=== PATIENT | male | born 1965 | race African-American/Black ===

== ENCOUNTER 2019-08-11 10:09 | Observation (INO) ==
[2019-08-11] MEDS ORDERED: ASPIRIN 325 MG TABLET PO STA (11:22)
[2019-08-11 11:27] LABS: Basophils % 0.8 % (0.0-0.8); Eosinophils # 0.1 10*3/uL (0.0-0.87); Eosinophils % 1.2 % (0.00-10.9); Hematocrit 47.3 VOL% (42.0-52.0); Hemoglobin 15.3 GM/DL (14.0-18.0); Immature Granulocytes % 0.6 %; Immature Granulocytes Absolute 0.03 #; Lymphocytes # 2.2 10*3/uL (1.4-4.0); Mean Corpuscular HGB Conc 32.3 GM/DL (32-36); Mean Corpuscular Volume 90.3 FL (87-102); Monocytes % 12.5 % (1.7-12.7); Neutrophils % 42.9 % (38.7-73.9); Platelet Count 230 T/CUMM (130-400); Red Blood Count 5.24 MC/CUMM (3.8-5.5); Red Cell Distribution Width 13.9 % (9.3-17.3); White Blood Count 5.2 T/CUMM (4-12)
[2019-08-11 11:35] LABS: INR 1.2; PT Patient Result 12.3 SECS (9.8-11.9); Partial Thromboplastin Time 29.6 SECS (23.9-33.8)
[2019-08-11] MEDS ORDERED: GLUCAGON 1 MG VIAL IM PRN (13:59)
[2019-08-11] MEDS ORDERED: MORPHINE 4 MG/1 ML VIAL IV PRN (13:59)
[2019-08-11] MEDS ORDERED: ONDANSETRON 4 MG/2 ML VIAL IV PRN (13:59)
[2019-08-11] MEDS ORDERED: DEXTROSE 10% 250 ML BAG IV PRN (13:59)
[2019-08-11] MEDS ORDERED: NIFEdipine 10 MG CAPSULE PO PRN ×2 (15:12→15:32)
[2019-08-11 16:43] LABS: Risk Ratio 3.06; VLDL CHOLESTEROL 26.8 MG/DL
[2019-08-11] MEDS ORDERED: NITROGLYCERIN SL 0.4 MG TABLET SL PRN (16:53)
[2019-08-11] MEDS ORDERED: ENOXAPARIN 100 MG/ML SYRINGE SUBCUT SCH (18:00)
[2019-08-11 18:45] LABS: Apearance,Urine CLEAR (Clear); Bacteria,Urine Occasional /HPF (Few); Bilirubin,Urine Negative (Negative); Blood, Urine Negative (Negative); Glucose,Urine (UA) Negative (Negative); Ketones,Urine Negative (Negative); Mucus,Urine Few /LPF (Occasional); Nitrite,Urine Negative (Negative); Protein,Urine Negative; RBC,Urine 1 /HPF (0-4); Urine Color Yellow (Yellow); Urine Specific Gravity 1.021 (1.001-1.035); Urine Urobilinogen < 2.0 EU/DL (0.2-1.0); WBC,Urine 10 /HPF (0-6)
[2019-08-11 20:34] LABS: Calcium 9.3 MG/DL (8.5-10.1); Osmolality,Calculated 275.8 MOS/KG (273-304)
[2019-08-11] MEDS: METOPROLOL TARTRATE 25 MG TABLET PO SCH (20:44)
[2019-08-11] MEDS: ENOXAPARIN 100 MG/ML SYRINGE SUBCUT SCH (20:44)
[2019-08-11] MEDS ORDERED: ENOXAPARIN 40 MG/0.4 ML SYRINGE SUBCUT SCH (21:00)
[2019-08-11] MEDS ORDERED: POTASSIUM CHLORIDE 20 MEQ TABLET PO ONE (21:05)
[2019-08-11 21:21] LABS: Barbiturates Screen,Urine Negative (Negative); Benzodiazepines Screen,Urine Negative (Negative); Cannabinoid Screen,Urine Negative (Negative); Opiate Screen,Urine Negative (Negative); Phencyclidine Screen,Urine Negative (Negative)
[2019-08-12 06:09] LABS: Basophils % 0.8 % (0.0-0.8); Eosinophils # 0.1 10*3/uL (0.0-0.87); Eosinophils % 1.5 % (0.00-10.9); Hematocrit 45.7 VOL% (42.0-52.0); Hemoglobin 14.8 GM/DL (14.0-18.0); Immature Granulocytes % 0.2 %; Immature Granulocytes Absolute 0.01 #; Lymphocytes # 2.4 10*3/uL (1.4-4.0); Mean Corpuscular HGB Conc 32.4 GM/DL (32-36); Mean Platelet Volume 9.8 FL (9.6-12.0); Monocytes % 9.9 % (1.7-12.7); Neutrophils % 41.6 % (38.7-73.9); Platelet Count 226 T/CUMM (130-400); Red Blood Count 5.08 MC/CUMM (3.8-5.5); Red Cell Distribution Width 14.1 % (9.3-17.3); White Blood Count 5.2 T/CUMM (4-12)
[2019-08-12 06:32] LABS: Calcium 9.1 MG/DL (8.5-10.1); Osmolality,Calculated 277.5 MOS/KG (273-304)
[2019-08-12] MEDS: METOPROLOL TARTRATE 25 MG TABLET PO SCH (08:29)
[2019-08-12] MEDS: ENOXAPARIN 100 MG/ML SYRINGE SUBCUT SCH (08:29)
[2019-08-12] MEDS ORDERED: PANTOPRAZOLE 40 MG TABLET PO SCH (09:00)
[2019-08-12] MEDS ORDERED: ASPIRIN EC 81 MG TABLET PO SCH (09:00)
[2019-08-12] MEDS ORDERED: ATORVASTATIN 40 MG TABLET PO SCH (09:00)
[2019-08-12 12:28] VITALS: BP 122/72
== END 2019-08-12 15:20 | disposition home or self-care (01) ==
LOC: N.EDINP 10:09 → N.ED 10:09 → SUATTDRO 13:59 → N.TELEN 14:29
PROVIDERS: ADMIT Emergency Medicine; ATTEND Family Medicine